=== PATIENT | male | born 1995 | race Two or more races ===

== ENCOUNTER 2017-01-11 16:31 | Emergency (ER) | payer SELFPAY ==
[~2017-01-11] VITALS: Ht 162.6 cm; Wt 97.3 kg
[2017-01-11 17:00] VITALS: BP 152/73
[2017-01-11] MEDS ORDERED: FLUORESCEIN OPHTHALMIC 1 MG STRIP ONE (17:08)
[2017-01-11] MEDS ORDERED: PROPARACAINE OPHTH 0.5%, 15ML ONE (17:09)
[2017-01-11] MEDS ORDERED: SILVER SULF. CRM 1%, 50GM TP ONE (17:30)
[2017-01-11] MEDS ORDERED: SILVER SULF. CRM 1%, 50GM ONE (17:32)
[2017-01-11] MEDS ORDERED: DIPH,PERTUSS(ACELL),TET VAC/PF 0.5 ML IM-VACC ONE ×2 (18:00→18:09)
== END 2017-01-11 18:08 | disposition home or self-care (01) ==
LOC: ED 17:30
DX: T20.26XA Burn of second degree of forehead and cheek, initial encounter (principal); T20.16XA Burn of first degree of forehead and cheek, initial encounter; T20.14XA Burn of first degree of nose (septum), initial encounter; T20.13XA Burn of first degree of chin, initial encounter; T20.12XA Burn of first degree of lip(s), initial encounter; T22.111A Burn of first degree of right forearm, initial encounter; T26.02XA Burn of left eyelid and periocular area, initial encounter; T31.0 Burns involving less than 10% of body surface; X08.8XXA Exposure to other specified smoke, fire and flames, initial encounter; Y93.89 Activity, other specified; Y92.830 Public park as the place of occurrence of the external cause; Y99.8 Other external cause status
CPT/HCPCS: 16020; 90471; 90715